=== PATIENT | female | born 2000 | race Caucasian/White ===

== ENCOUNTER 2019-09-02 19:37 | Emergency (ER) | payer BC ==
[2019-09-02 19:56] VITALS: BP 148/80
== END 2019-09-02 22:49 | disposition left against medical advice (07) ==
LOC: ED 19:37
DX: Z53.21 Procedure and treatment not carried out due to patient leaving prior to being seen by health care provider (principal); R10.9 Unspecified abdominal pain
CPT/HCPCS: 99282